=== PATIENT | female | born 1965 | race Caucasian/White ===

== ENCOUNTER → 2024-07-09 | Outpatient (CLI) | payer BC ==
[2024-07-26 09:05] LABS: HPV HIGH RISK BY TMA Not Detected; HPV SOURCE Cervical
== END ==
LOC: LAB SHORT 10:31 → LAB 10:31
PROVIDERS: Family Medicine
DX: Z01.419 Encounter for gynecological examination (general) (routine) without abnormal findings (principal)
CPT/HCPCS: 87624; G0123

== ENCOUNTER 2025-02-19 06:36 | Day surgery (SDC) | payer BC ==
[~2025-02-19] VITALS: Ht 165.1 cm; Wt 73.6 kg
[2025-02-19] MEDS ORDERED: Bupivacaine 0.5% W/EPI 1:200000 SDV 30 ML Vial ONE (07:03)
[2025-02-19] MEDS ORDERED: CeFAZolin Sodium 2,000 MG VIAL ONE (07:23)
[2025-02-19] MEDS ORDERED: SYNTHROID112 M12 (07:31)
[2025-02-19] MEDS ORDERED: LOVASTATIN40 MG (07:31)
[2025-02-19] MEDS ORDERED: LISINOPRIL-HCT1 EAC1 (07:31)
[2025-02-19] MEDS ORDERED: TURMERIC500 M2 PO (07:32)
[2025-02-19] MEDS ORDERED: FENOFIBRATE48 MG (07:32)
[2025-02-19] MEDS ORDERED: METFORMIN HCL500 M3 (07:32)
[2025-02-19] MEDS ORDERED: VITAMIN E180 MG (07:33)
[2025-02-19] MEDS ORDERED: Milk Thistle175 M1 PO (07:33)
[2025-02-19] MEDS ORDERED: VITAMIN C WITH500 M1 (07:34)
[2025-02-19] MEDS ORDERED: FISH OIL 1,0001 EA10 (07:34)
[2025-02-19] MEDS ORDERED: WOMEN MULTIVIT1 EAC1 (07:34)
[2025-02-19] MEDS ORDERED: VITAMIN D350 MC3 (07:34)
[2025-02-19] MEDS ORDERED: Bupivacaine 0.5% HCl 5 MG/ML 30MLVIAL ONE (07:45)
[2025-02-19] MEDS ORDERED: FentaNYL Citrate 50 MCG/ML 2 ML Injection ONE (07:46)
[2025-02-19] MEDS ORDERED: Midazolam HCl 1MG / ML 2ML Vial ONE ×2 (07:54→09:42)
--- NOTE | 2025-02-19 08:33 | NUR ---
02/19/25 08 Adri Beatty PT HAD PREOP BLOCK ON RIGHT LEG T/O 819 START:825 END:828
[2025-02-19] MEDS ORDERED: ePHEDrine Sulfate 50 MG/ML 1ML Injection ONE (08:56)
--- NOTE | 2025-02-19 10:47 | NUR ---
02/19/25 1047 NEY WOODRUFF PT WOKE UP EMOTIONAL. CRYING. STATES SHE WAS STILL NERVOUS. INFORMED HER THAT SHE WAS DOING GREAT. SHE DENIES PAIN AND NAUSEA. ABLE TO MOVE TOES ON HER RIGHT FOOT, TOES ARE WARM TO TOUCH WITH GOOD CAP REFILL
--- NOTE | 2025-02-19 11:10 | NUR ---
02/19/25 1109 NEY WOODRUFF PT DENIES PAIN AND NAUSEA
[2025-02-19 11:23] VITALS: BP 141/76
== END 2025-02-19 11:45 | disposition home or self-care (01) ==
LOC: ORSCSDS 06:36
PROVIDERS: Podiatrist Foot & Ankle Surgery
PROC: 0MQQ0ZZ Repair Right Ankle Bursa and Ligament, Open Approach (ICD-10-PCS; principal; 2025-02-19 08:15)
PROC: 0SBF4ZZ Excision of Right Ankle Joint, Percutaneous Endoscopic Approach (ICD-10-PCS; principal; 2025-02-19 08:15)
PROC: 0LQV0ZZ Repair Right Foot Tendon, Open Approach (ICD-10-PCS; principal; 2025-02-19 08:15)
PROC: 0QBL0ZZ Excision of Right Tarsal, Open Approach (ICD-10-PCS; principal; 2025-02-19 08:15)
DX: M21.171 Varus deformity, not elsewhere classified, right ankle (principal); M24.871 Other specific joint derangements of right ankle, not elsewhere classified; S86.311A Strain of muscle(s) and tendon(s) of peroneal muscle group at lower leg level, right leg, initial encounter; M25.371 Other instability, right ankle; I10 Essential (primary) hypertension; I25.10 Atherosclerotic heart disease of native coronary artery without angina pectoris; E78.5 Hyperlipidemia, unspecified; E11.9 Type 2 diabetes mellitus without complications; E03.9 Hypothyroidism, unspecified; Z79.899 Other long term (current) drug therapy; Z79.84 Long term (current) use of oral hypoglycemic drugs
CPT/HCPCS: 82947; A6253; C1713; C1769; J0166; J0690; J2250; J2704; J3010; J7120